=== PATIENT | female | born 1985 | race Caucasian/White ===

== ENCOUNTER 2023-12-21 17:06 | Inpatient (IN) | payer MEDICAID, OTHER ==
[~2023-12-21] VITALS: Ht 162.6 cm; Wt 65.3 kg
[2023-12-21 18:04] LABS: APPEARANCE,URINE CLEAR (CLEAR); BILIRUBIN,URINE 1+ (NEGATIVE); BLOOD, URINE NEGATIVE Ery/uL (NEGATIVE); COLOR,URINE YELLOW (YELLOW); KETONES,URINE NEGATIVE (NEGATIVE); LEUKOCYTE ESTERASE ,URINE NEGATIVE (NEGATIVE); NITRITE, URINE NEGATIVE (NEGATIVE); PH,URINE 8.5 (5.0-8.0); PREGNANCY TEST URINE QUAL NEGATIVE (NEGATIVE); UGLUCOSE NEGATIVE (NEGATIVE)
[2023-12-21 18:05] LABS: PROTEIN,URINE NEGATIVE (NEGATIVE)
[2023-12-21 18:15] LABS: BASOPHILS # (AUTO) 0.4 K/uL (0.0-0.2); BASOPHILS % (AUTO) 4.2 % (0.0-2.0); EOSINOPHILS # (AUTO) 0.4 K/uL (0.0-0.7); EOSINOPHILS % (AUTO) 4.4 % (0.0-6.0); HEMATOCRIT 24 % (33-45); HEMOGLOBIN 7.1 g/dL (11.5-14.8); LYMPHOCYTES # (AUTO) 1.8 K/uL (0.8-4.8); LYMPHOCYTES % (AUTO) 18.2 % (20.0-44.0); MEAN CORPUSCULAR HEMOGLOBIN 23 PG (26.0-33.0); MEAN CORPUSCULAR HGB CONC 30 g/dl (31.0-36.0); MEAN CORPUSCULAR VOLUME 78 fL (82-100); MONOCYTES # (AUTO) 1.1 K/uL (0.1-1.30); NEUTROPHILS % (AUTO) 62.2 % (43.0-81.0); PLATELET COUNT (AUTO) 451 K/uL (150-450); RED BLOOD CELL COUNT(AUTO) 3.05 MIL/uL (4.0-5.2); RED CELL DISTRIBUTION WIDTH 24.6 % (11.5-15.0); WHITE BLOOD COUNT (AUTO) 9.6 K/uL (4.3-11.0)
[2023-12-21 18:31] LABS: CALCIUM, SERUM 8.8 mg/dL (8.5-10.1); CARBON DIOXIDE 25 mmol/L (21-32); CHLORIDE 106 mmol/L (98-107); CREATININE 0.6 mg/dL (0.6-1.3); GLUCOSE 104 mg/dL (74-106); POTASSIUM 4.1 mmol/L (3.5-5.1); SODIUM SERUM 141 mmol/L (136-145); UREA NITROGEN, BLOOD 7 mg/dL (7-18)
[2023-12-21 18:39] LABS: ALANINE AMINOTRANSFERASE 32 U/L (12-78); ALBUMIN 2.2 g/dL (3.4-5.0); ALKALINE PHOSPHATASE 175 U/L (46-116); ASPARTATE AMINOTRANSFERASE 134 U/L (15-37); BILIRUBIN,DIRECT 2.8 mg/dL (0.0-0.2); TOTAL PROTEIN, SERUM 6.9 g/dL (6.4-8.2)
[2023-12-21 18:41] LABS: LIPASE > 375 U/L (16-77)
[2023-12-21 19:35] VITALS: O2SAT 99
[2023-12-21] MEDS ORDERED: ONDANSETRON HCL/PF 4 MG/2 ML VIAL IVP PRN (20:00)
[2023-12-21] MEDS ORDERED: MORPHINE SULFATE INJ 2 MG/ML DISP.SYRIN IV PRN (20:00)
[2023-12-21] MEDS ORDERED: Z GUARD REMEDY 4 OZ OINT TP PRN (20:00)
[2023-12-21] MEDS ORDERED: MAG HYDROX/AL HYDROX/SIMETH 30 ML UDC PO PRN (20:00)
[2023-12-21] MEDS ORDERED: MAGNESIUM HYDROXIDE 30 ML UDC PO PRN (20:00)
[2023-12-21] MEDS ORDERED: hydrOXYzine HCL SYRUP 10 MG/5 ML UDC PO PRN (20:00)
[2023-12-21] MEDS: IV NS 0.9% 1,000 ML BAG IV ONE (20:05)
[2023-12-21 21:32] VITALS: BP 231/83; TEMP 98.8; O2SAT 100
[2023-12-21 22:35] LABS: IRON, SERUM 14 ug/dl (50-175); TOTAL IRON BINDING CAPACITY 383 ug/dl (250-450)
[2023-12-21] MEDS: IV NS 0.9% 1,000 ML IV SCH (22:39)
[2023-12-21] MEDS: THIAMINE HCL 100 MG TABLET PO SCH (22:42)
[2023-12-21] MEDS ORDERED: hydrOXYzine 10 MG TABLET ONE (23:50)
[2023-12-22] VITALS (8 sets, daily range): BP systolic 107–131; BP diastolic 67–82; TEMP 98–99; O2SAT 97–99
[2023-12-22] MEDS: ACETAMINOPHEN 325 MG TABLET PO PRN (00:02)
[2023-12-22] MEDS: ZOLPIDEM TARTRATE 5 MG TABLET PO PRN (00:02)
[2023-12-22] MEDS: hydrOXYzine 10 MG TABLET PO PRN (01:01)
[2023-12-22] MEDS: PANTOPRAZOLE 40 MG VIAL IV SCH (06:05)
[2023-12-22 07:00] LABS: ALBUMIN 1.9 g/dL (3.4-5.0); BILIRUBIN,DIRECT 2.4 mg/dL (0.0-0.2); BILIRUBIN,TOTAL 2.7 mg/dL (0.2-1.0); CALCIUM, SERUM 8.1 mg/dL (8.5-10.1); CREATININE 0.6 mg/dL (0.6-1.3); PHOSPHORUS 3.6 mg/dL (2.5-4.9); POTASSIUM 3.4 mmol/L (3.5-5.1); TOTAL PROTEIN, SERUM 5.8 g/dL (6.4-8.2)
[2023-12-22 07:12] LABS: BASOPHILS # (AUTO) 0.1 K/uL (0.0-0.2); BASOPHILS % (AUTO) 1.2 % (0.0-2.0); EOSINOPHILS # (AUTO) 0.4 K/uL (0.0-0.7); EOSINOPHILS % (AUTO) 4.8 % (0.0-6.0); LYMPHOCYTES # (AUTO) 1.6 K/uL (0.8-4.8); LYMPHOCYTES % (AUTO) 19.2 % (20.0-44.0); MEAN CORPUSCULAR HEMOGLOBIN 23 PG (26.0-33.0); MEAN CORPUSCULAR HGB CONC 30 g/dl (31.0-36.0); MEAN CORPUSCULAR VOLUME 77 fL (82-100); MONOCYTES # (AUTO) 0.9 K/uL (0.1-1.30); MONOCYTES % (AUTO) 10.6 % (2.0-12.0); NEUTROPHILS # (AUTO) 5.2 K/uL (1.8-8.9); NEUTROPHILS % (AUTO) 64.2 % (43.0-81.0); PLATELET COUNT (AUTO) 392 K/uL (150-450); RED BLOOD CELL COUNT(AUTO) 2.64 MIL/uL (4.0-5.2); RED CELL DISTRIBUTION WIDTH 23.7 % (11.5-15.0); WHITE BLOOD COUNT (AUTO) 8.1 K/uL (4.3-11.0)
[2023-12-22 07:29] LABS: HEMOGLOBIN 6.1 g/dL (11.5-14.8)
[2023-12-22 07:30] LABS: HEMATOCRIT 20 % (33-45)
[2023-12-22] MEDS: MULTIVITAMINS,THERAGRAN 1 UDTAB TABLET PO SCH (08:55)
[2023-12-22] MEDS: FOLIC ACID 1 MG TABLET PO SCH (08:55)
[2023-12-22] MEDS: POTASSIUM CHLORIDE 20 MEQ POWDER PACKET PO ONE (08:56)
[2023-12-22] MEDS: HYDROCORTISONE 0.5% CREAM 28.35 GM TUBE TP SCH (08:57)
[2023-12-22 10:38] LABS: FERRITIN 20 ng/mL (8-388)
[2023-12-22 10:38] LABS: ANISOCYTOSIS 1+; BASOPHILS % (MANUAL) 0 % (0.0-2.0); EOSINOPHILS % (MANUAL) 6 % (0-4); HYPOCHROMASIA 1+; LYMPHOCYTES % (MANUAL) 15 % (16-48); MONOCYTES % (MANUAL) 8 % (0-11.0); NEUTROPHILS % (MANUAL) 71 (42-76); PLATELET ESTIMATE ADEQUATE
[2023-12-22 11:21] LABS: INR 1.25 (0.91-1.10); PARTIAL THROMBOPLASTIN TIME 29.8 SEC (24.3-34.3); PROTHROMBIN TIME 13.1 SECS (9.2-11.1)
[2023-12-22] MEDS: IV NS 0.9% 1,000 ML IV PRN (19:56)
[2023-12-23 06:44] LABS: BASOPHILS # (AUTO) 0.1 K/uL (0.0-0.2); BASOPHILS % (AUTO) 1.1 % (0.0-2.0); EOSINOPHILS # (AUTO) 0.4 K/uL (0.0-0.7); EOSINOPHILS % (AUTO) 5.1 % (0.0-6.0); HEMATOCRIT 23 % (33-45); HEMOGLOBIN 7.2 g/dL (11.5-14.8); LYMPHOCYTES # (AUTO) 1.6 K/uL (0.8-4.8); MEAN CORPUSCULAR HEMOGLOBIN 24 PG (26.0-33.0); MEAN CORPUSCULAR HGB CONC 31 g/dl (31.0-36.0); MEAN CORPUSCULAR VOLUME 78 fL (82-100); MONOCYTES # (AUTO) 0.9 K/uL (0.1-1.30); MONOCYTES % (AUTO) 11.1 % (2.0-12.0); NEUTROPHILS # (AUTO) 4.8 K/uL (1.8-8.9); NEUTROPHILS % (AUTO) 61.7 % (43.0-81.0); PLATELET COUNT (AUTO) 392 K/uL (150-450); RED BLOOD CELL COUNT(AUTO) 3.02 MIL/uL (4.0-5.2); RED CELL DISTRIBUTION WIDTH 21.9 % (11.5-15.0); WHITE BLOOD COUNT (AUTO) 7.8 K/uL (4.3-11.0)
[2023-12-23 06:59] LABS: ALBUMIN 1.9 g/dL (3.4-5.0); BILIRUBIN,DIRECT 2.5 mg/dL (0.0-0.2); BILIRUBIN,TOTAL 2.9 mg/dL (0.2-1.0); CALCIUM, SERUM 7.6 mg/dL (8.5-10.1); CREATININE 0.6 mg/dL (0.6-1.3); MAGNESIUM 2.1 mg/dL (1.8-2.4); PHOSPHORUS 3.5 mg/dL (2.5-4.9); POTASSIUM 3.7 mmol/L (3.5-5.1); TOTAL PROTEIN, SERUM 5.9 g/dL (6.4-8.2)
[2023-12-23 08:00] VITALS: BP 120/82; TEMP 97.9; O2SAT 96
[2023-12-23] MEDS: DICYCLOMINE HCL 10 MG CAPSULE PO SCH (11:41)
[2023-12-23] MEDS ORDERED: DICY10CA37 PO (15:25)
[2023-12-23] MEDS ORDERED: THIA100T88 PO (15:25)
[2023-12-23] MEDS ORDERED: PANT40TA2 PO (15:25)
[2023-12-23] MEDS ORDERED: MULT-24 PO (15:25)
[2023-12-23] MEDS ORDERED: FOLI0.8C PO (15:25)
[2023-12-23] MEDS ORDERED: HYDR-3642 PO (16:19)
== END 2023-12-23 17:31 | disposition home or self-care (01) | DRG 282 ==
LOC: ER 17:10 → MED 21:04
PROVIDERS: ATTEND Student in an Organized Health Care Education/Training Program
PROC: 0DJ08ZZ Inspection of Upper Intestinal Tract, Via Natural or Artificial Opening Endoscopic (ICD-10-PCS; principal; 2023-12-22)
PROC: 30233N1 Transfusion of Nonautologous Red Blood Cells into Peripheral Vein, Percutaneous Approach (ICD-10-PCS; 2023-12-22)
DX: K85.20 Alcohol induced acute pancreatitis without necrosis or infection (principal); K70.40 Alcoholic hepatic failure without coma; E43 Unspecified severe protein-calorie malnutrition; K76.6 Portal hypertension; E88.09 Other disorders of plasma-protein metabolism, not elsewhere classified; D75.839 Thrombocytosis, unspecified; K31.89 Other diseases of stomach and duodenum; F10.10 Alcohol abuse, uncomplicated; K76.0 Fatty (change of) liver, not elsewhere classified; E87.6 Hypokalemia; D50.9 Iron deficiency anemia, unspecified; Y90.9 Presence of alcohol in blood, level not specified; E80.6 Other disorders of bilirubin metabolism; F12.91 Cannabis use, unspecified, in remission; Z68.24 Body mass index [BMI] 24.0-24.9, adult
CPT/HCPCS: 36415; 71045-TC; 76705-TC; 80048-TC; 80076-TC; 82607-TC; 82728-TC; 83540-TC; 83690-TC; 83735-TC; 84100-TC; 84703-TC; 85025-TC; 85045-TC; 85610-TC; 85730-TC; 86850-TC; A4223; C9113; G0378; J2704; J3490; J7030; P9016; Q0177